=== PATIENT | male | born 1995 ===

== ENCOUNTER 2020-05-30 14:14 | Outpatient (REF) | payer OTHER, SELFPAY ==
[2020-06-02 05:05] LABS: SARS-CoV-2 RNA Undetected (Undetected); SARS-CoV-2 Specimen Source Nasopharynx
== END 2020-05-30 14:34 ==
LOC: NCHCN 14:14
PROVIDERS: PCP Family Medicine; Referring Provider Family Medicine; Visit Provider Family Medicine
DX: Z20.828 Contact with and (suspected) exposure to other viral communicable diseases (principal)
CPT/HCPCS: U0003